=== PATIENT | female | born 1975 | race Caucasian/White ===

== ENCOUNTER → 2024-03-30 | Outpatient (CLI) | payer OTHER, SELFPAY ==
--- NOTE | 2024-03-30 08:18 | US_ITS ---
INDICATION: FU Thyroid Nodule. Additional history of previous biopsy which was benign. EXAMINATION: Ultrasound US Thyroid (eg thyroid, parathyroid, parotid) TECHNIQUE: Butcher scale and color doppler imaging was performed of the thyroid gland. COMPARISON: Previous imaging is not available however on request. FINDINGS: RIGHT THYROID LOBE: 6.2 x 1.8 x 1.6 cm. Homogeneous echotexture with normal vascularity. [3 nodules are identified including a 0.5 x 0.5 x 0.2 cm nodule, 0.3 x 0.3 x 0.2 cm nodule, and 0.5 x 0.4 x 0.2 cm nodule. All appear to be cystic with well-defined boundaries, no abnormal internal blood flow. Findings are consistent with benign TI-RADS 1 lesions. LEFT THYROID LOBE: 6.9 x 2.4 x 2.3 cm.. Homogeneous echotexture with normal vascularity. [2 nodules are present. There is a dominant nodule measuring 2.8 x 1.6 x 2.0 cm with complex appearance, internal structure, and internal blood flow. This is a solid and cystic nodule with ill-defined boundaries, consistent with a TI-RADS 4 lesion. 2nd nodule measures 0.6 x 0.5 x 0.3 cm, and is a solid and cystic nodule circumscribed contour and no internal blood flow consistent with a TI-RADS 2 lesion. ISTHMUS: 2.1 mm. No thyroid nodules are present. US/Thyroid IMPRESSION: 1. Thyroid nodules as detailed including 3 nodules on the RIGHT and 2 nodules on the LEFT. 2. The nodules on the RIGHT are consistent with benign TI-RADS 1 nodules. 3. Small nodule on the LEFT is consistent with TI-RADS 2 lesion. And is not a suspicious lesion. 4. The dominant nodule on the LEFT is a TI-RADS 4 lesion. In the absence of previous imaging for comparison and to assess interval change, recommendations as included below. If previous imaging becomes available for comparison and to assess interval change, an addendum with amended recommendations can be submitted. RECOMMENDATION: TI-RADS 4-Moderately Suspicious: FNA if ? 1.5 cm; Follow if ? 1 cm at 1, 2, 3, and 5 y Electronically Signed: Bernard Valdez MD at 19:37 EDT ,
== END | disposition home or self-care (01) ==
PROVIDERS: PCP Internal Medicine; Referring Provider Internal Medicine; Visit Provider Internal Medicine
DX: E04.2 Nontoxic multinodular goiter (principal)
CPT/HCPCS: 76536

== ENCOUNTER → 2024-05-17 | Outpatient (CLI) | payer OTHER, SELFPAY ==
[2024-05-17 10:13] LABS: Basophil# 0.05 X10^3/uL; Basophil% 0.8 % (0-1); Eosinophil# 0.21 X10^3/uL; Eosinophils% 3.3 % (0-5); Hematocrit 41.3 % (37-47); Hemoglobin 13.8 g/dL (12.0-15.0); Lymphocyte % 23.5 % (19-41); Mean Corp Hgb Conc 33.4 g/dL (32-36); Mean Corpuscular Hgb 30.3 pg (27.0-32.0); Mean Corpuscular Volume 90.6 fL (81-99); Mean Platelet Vol. 10.2 fl (6.2-12.0); Monocyte# 0.58 X10^3/uL; Monocyte% 9.1 % (0-10); NRBC Flagged by Analyzer 0 % (0-5); Neutrophil % 62.8 % (47-70); POSITIVE COUNT YES; RBC Distribution Width CV 12.5 % (11.6-14.6); RBC Distribution Width SD 41.5 fl (35.1-43.9); Red Blood Count 4.56 M/mm3 (4.2-5.4); White Blood Count 6.4 K/mm3 (4.4-11.0)
[2024-05-17 10:41] LABS: AST(SGOT) 16 U/L (15-37); Alanine Aminotransfer ALT/SGPT 26 U/L (13-56); Albumin, Serum 4.2 g/dL (3.2-5.0); Alkaline Phosphatase 68 U/L (45-117); Anion Gap 6 (5-15); BUN 12 mg/dL (7-18); BUN/Creat Ratio 15.5 RATIO (10-20); Calcium,Total 9.2 mg/dL (8.5-10.1); Chloride 108 mmol/L (98-107); Cholesterol 189 mg/dL (200); Creatinine, Serum 0.77 mg/dL (0.55-1.02); EST Glomerular Filtration Rate 84 mL/min (>60); Est Glom Filt Rate - Afr Amer 101 mL/min (>60); Glucose 100 mg/dL (74-106); High Density Lipoprotein 85 mg/dL; Potassium 3.7 mmol/L (3.5-5.1); Protein, Total 8.2 g/dL (6.4-8.2); Sodium Level 138 mmol/L (136-145); T4 Free Direct 0.88 ng/dL (0.76-1.46); Thyroid Stim Hormone (TSH) 1.79 uIU/mL (0.358-3.74); Triglycerides 53 mg/dL; Very Low Density Lipoprotein 11 mg/dL (5-40)
[2024-05-17 11:00] LABS: Platelet Estimate ADEQUATE (ADEQ)
[2024-05-22 11:59] LABS: T3 Reverse 14.9 ng/dL (9.2-24.1)
== END | disposition home or self-care (01) ==
PROVIDERS: PCP Internal Medicine; Referring Provider Internal Medicine; Visit Provider Internal Medicine
DX: Z00.00 Encounter for general adult medical examination without abnormal findings (principal); E04.2 Nontoxic multinodular goiter
CPT/HCPCS: 36415; 80053; 80061; 84439; 84443; 84482; 85025

== ENCOUNTER → 2025-04-10 | Outpatient (CLI) | payer OTHER, SELFPAY ==
--- NOTE | 2025-04-10 12:07 | US_ITS ---
PROCEDURE: THYROID 04/10/2025 REASON FOR EXAM: MULTINODULAR GOITER TECHNIQUE: THYROID COMPARISON: 03/30/2024 FINDINGS: Thyroid gland is heterogeneous Right thyroid lobe size: 6.2 x 1.5 x 1.6 cm There is a stable 0.5 cm cyst and stable 0.5 cm and 0.3 cm solid hypoechoic nodules. No new suspicious nodule no hyperemia Left thyroid lobe size: 7.2 x 2.1 x 2 cm Stable 3 x 1.7 x 2.1 cm mixed solid and cystic nodule with vascularity. Stable 0.5 cm hypoechoic nodule. Isthmus: 2.3 cm US/Thyroid IMPRESSION: Stable enlarged heterogeneous thyroid gland with bilateral stable nodules and c yst in the right lobe. No interval change since the previous study. Findings again suggestive of goiter, continued sonographic follow-up. RECOMMENDATION: Based on most suspicious nodule. Nodule size = largest diameter Only evaluate nodule if =>5 mm. Growth > 20% in 2 dimensions = worsening. Follow up to 4 nodules. Recommend biopsy for no more than 2 nodules. Reading Location: [id number]
== END | disposition home or self-care (01) ==
PROVIDERS: PCP Internal Medicine; Referring Provider Surgery; Visit Provider Surgery
DX: E04.2 Nontoxic multinodular goiter (principal)
CPT/HCPCS: 76536